=== PATIENT | female | born 1980 | race Caucasian/White ===

== ENCOUNTER → 2018-09-05 14:53 | Outpatient (CLI) | payer OTHER, SELFPAY ==
[2016-07-07 14:08] VITALS: BMI 32.7
[2018-09-05 17:56] LABS: Anion Gap 5 (5-15); BUN 13 mg/dL (7-18); BUN/Creat Ratio 20.4 RATIO (10-20); Chloride 107 mmol/L (98-107); Creatinine, Serum 0.64 mg/dL (0.55-1.02); EST Glomerular Filtration Rate 111 mL/min (>60); Est Glom Filt Rate - Afr Amer 135 mL/min (>60); Ferritin 19 ng/mL (8-252); Glucose 85 mg/dL (74-106); Sodium Level 140 mmol/L (136-145); Thyroid Stim Hormone (TSH) 0.82 uIU/mL (0.358-3.74)
== END ==
PROVIDERS: Family Provider Family Medicine; PCP Family Medicine; Referring Provider Family Medicine; Visit Provider Family Medicine
DX: R07.89 Other chest pain (principal); N92.6 Irregular menstruation, unspecified
CPT/HCPCS: 36415; 80048; 82728; 84443

== ENCOUNTER → 2020-01-22 14:01 | Outpatient (CLI) | payer OTHER, SELFPAY ==
[2016-07-07 14:08] VITALS: BMI 32.7
[2020-01-22 16:02] LABS: Absolute Lymphocyte Count 1.59 X10^3/uL (0.83-4.51); Absolute Neutrophil Count 3.3 X10^3/uL (2.0-7.7); Basophil# 0.03 X10^3/uL; Basophil% 0.5 % (0-1); Eosinophil# 0.09 X10^3/uL; Eosinophils% 1.6 % (0-5); Hematocrit 42.9 % (37-47); Hemoglobin 14.1 g/dL (12.0-15.0); Lymphocyte # 1.59 X10^3/ul (4.0); Lymphocyte % 28.9 % (19-41); Mean Corp Hgb Conc 32.9 g/dL (32-36); Mean Corpuscular Hgb 30.5 pg (27.0-32.0); Mean Corpuscular Volume 92.9 fL (81-99); Mean Platelet Vol. 9.6 fl (6.2-12.0); Monocyte# 0.52 X10^3/uL; Monocyte% 9.4 % (0-10); NRBC Flagged by Analyzer 0 % (0-5); Neutrophil # 3.27 X10^3/uL (2.7-7.7); Neutrophil % 59.4 % (47-70); Platelet Count 314 K/mm3 (150-450); RBC Distribution Width CV 12.6 % (11.6-14.6); RBC Distribution Width SD 43.3 fl (35.1-43.9); Red Blood Count 4.62 M/mm3 (4.2-5.4); White Blood Count 5.5 K/mm3 (4.4-11.0)
[2020-01-22 16:33] LABS: ALB/GLOB Ratio 0.8 RATIO (0.9-2.4); AST(SGOT) 12 U/L (15-37); Alanine Aminotransfer ALT/SGPT 24 U/L (13-56); Albumin, Serum 3.5 g/dL (3.2-5.0); Alkaline Phosphatase 75 U/L (45-117); Anion Gap 3 (5-15); BUN 10 mg/dL (7-18); BUN/Creat Ratio 12.8 RATIO (10-20); Calcium,Total 8.9 mg/dL (8.5-10.1); Chloride 104 mmol/L (98-107); Creatinine, Serum 0.78 mg/dL (0.55-1.02); EST Glomerular Filtration Rate 87 mL/min (>60); Est Glom Filt Rate - Afr Amer 106 mL/min (>60); Globulin 4.2 g/dL (2.2-4.2); Glucose 90 mg/dL (74-106); Potassium 3.7 mmol/L (3.5-5.1); Protein, Total 7.7 g/dL (6.4-8.2); Sodium Level 138 mmol/L (136-145); Thyroid Stim Hormone (TSH) 0.77 uIU/mL (0.358-3.74)
== END ==
PROVIDERS: PCP Family Medicine; Referring Provider Family Medicine; Visit Provider Family Medicine
DX: N92.6 Irregular menstruation, unspecified (principal)
CPT/HCPCS: 36415; 80053; 84443; 85025

== ENCOUNTER → 2020-02-05 17:31 | Outpatient (CLI) | payer OTHER, SELFPAY | PROVIDERS: PCP Family Medicine; Referring Provider Family Medicine; Visit Provider Family Medicine | DX: Z20.828 Contact with and (suspected) exposure to other viral communicable diseases (principal) | CPT/HCPCS: 87635; U0003 ==

== ENCOUNTER → 2020-04-09 10:20 | Outpatient (CLI) | payer OTHER, SELFPAY ==
[2016-07-07 14:08] VITALS: BMI 32.7
[2020-04-09 12:24] LABS: Absolute Lymphocyte Count 1.33 X10^3/uL (0.83-4.51); Absolute Neutrophil Count 2.2 X10^3/uL (2.0-7.7); Basophil# 0.05 X10^3/uL; Basophil% 1.2 % (0-1); Eosinophil# 0.18 X10^3/uL; Eosinophils% 4.2 % (0-5); Hematocrit 44.1 % (37-47); Hemoglobin 14.4 g/dL (12.0-15.0); Lymphocyte # 1.33 X10^3/ul (4.0); Lymphocyte % 31.1 % (19-41); Mean Corp Hgb Conc 32.7 g/dL (32-36); Mean Corpuscular Hgb 29.8 pg (27.0-32.0); Mean Corpuscular Volume 91.1 fL (81-99); Mean Platelet Vol. 9.9 fl (6.2-12.0); Monocyte# 0.47 X10^3/uL; NRBC Flagged by Analyzer 0 % (0-5); Neutrophil # 2.24 X10^3/uL (2.7-7.7); Neutrophil % 52.5 % (47-70); Platelet Count 274 K/mm3 (150-450); RBC Distribution Width CV 11.7 % (11.6-14.6); RBC Distribution Width SD 39.2 fl (35.1-43.9); Red Blood Count 4.84 M/mm3 (4.2-5.4); White Blood Count 4.3 K/mm3 (4.4-11.0)
[2020-04-09 13:19] LABS: AST(SGOT) 13 U/L (15-37); Alanine Aminotransfer ALT/SGPT 22 U/L (13-56); Albumin, Serum 3.8 g/dL (3.2-5.0); Alkaline Phosphatase 88 U/L (45-117); Anion Gap 7 (5-15); BUN 15 mg/dL (7-18); BUN/Creat Ratio 18.2 RATIO (10-20); Calcium,Total 9.4 mg/dL (8.5-10.1); Chloride 104 mmol/L (98-107); Creatinine, Serum 0.83 mg/dL (0.55-1.02); EST Glomerular Filtration Rate 82 mL/min (>60); Est Glom Filt Rate - Afr Amer 99 mL/min (>60); Globulin 3.9 g/dL (2.2-4.2); Glucose 93 mg/dL (74-106); Lipase 61 U/L (73-393); Potassium 3.9 mmol/L (3.5-5.1); Protein, Total 7.7 g/dL (6.4-8.2); Sodium Level 138 mmol/L (136-145)
== END ==
PROVIDERS: PCP Family Medicine; Referring Provider Family Medicine; Visit Provider Family Medicine
DX: K29.90 Gastroduodenitis, unspecified, without bleeding (principal)
CPT/HCPCS: 36415; 80053; 83690; 85025

== ENCOUNTER → 2020-04-10 | Outpatient (CLI) | payer OTHER, SELFPAY ==
[2016-07-07 14:08] VITALS: BMI 32.7
[2020-04-15 08:14] LABS: H. PYLORI STOOL AG Negative (Negative)
== END | disposition home or self-care (01) ==
LOC: MFPLAB 14:50 → LABSPEC 14:52
PROVIDERS: PCP Family Medicine; Referring Provider Family Medicine; Visit Provider Family Medicine
DX: K29.90 Gastroduodenitis, unspecified, without bleeding (principal)

== ENCOUNTER → 2020-07-20 12:10 | Outpatient (CLI) | payer OTHER, SELFPAY ==
[2016-07-07 14:08] VITALS: BMI 32.7
== END ==
PROVIDERS: PCP Family Medicine; Visit Provider Family Medicine
DX: Z20.822 Contact with and (suspected) exposure to COVID-19 (principal)
CPT/HCPCS: 87635; U0005; U0003

== ENCOUNTER → 2021-04-08 | Outpatient (CLI) | payer OTHER, SELFPAY | END | disposition home or self-care (01) | PROVIDERS: PCP Family Medicine; Visit Provider Family Medicine | DX: U07.1 COVID-19 (principal) | CPT/HCPCS: 87635; U0005; U0003 ==

== ENCOUNTER 2021-07-02 08:12 | Outpatient (CLI) | payer OTHER, SELFPAY ==
--- NOTE | 2021-07-02 08:15 | BI_ITS ---
MAMMOGRAPHY - BILATERAL DIAGNOSTIC REASON FOR EXAM: Female, 41 years old. Right breast pain for 3 weeks at the 10 to 11 o''clock position. PERTINENT HISTORY: Mother with breast cancer. Grandmother with breast cancer. TECHNIQUE: Digital bilateral breast edgar (3D mammographic acquisition) in the CC and MLO projections. 2-D mediolateral oblique (MLO) and craniocaudad (CC) views of both breasts were obtained. CAD: Full Field Digital Mammography with Computer Added Detection was performed. COMPARISON: None. Baseline examination. FINDINGS: Breast Composition: The breasts are heterogeneously dense, which may obscure small masses. There are no dominant masses or suspicious calcifications. There is a 4 mm x 4 mm well-defined nodule in the anterior upper lateral aspect of the right breast suggestive of a small lymph node. No other significant abnormalities are identified. BI/DIAG MAMM W/CAD, BILAT IMPRESSION: 4 mm x 4 mm well-defined nodule in the anterior upper lateral aspect of the right breast. With the patient''s history of pain at the 10 to 11 o''clock position of the right breast, correlation with ultrasound is recommended. ASSESSMENT CATEGORY: BIRADS Category 0: Incomplete. Need additional imaging evaluation. A letter regarding these results will be sent to the patient by the facility within 30 days. Approximately 10% of breast cancers are not detected by mammography. A normal mammogram should not delay biopsy of a clinically suspicious abnormality. Electronically Signed: Johnathon Cr MD at 12:16 EST ,
--- NOTE | 2021-07-02 09:03 | US_ITS ---
STUDY: ULTRASOUND BREAST - RIGHT REASON FOR EXAM: Female, 41 years old. Right breast pain at the 10 to 11 o''clock position of the breasts. TECHNIQUE: Axial and longitudinal images of the RIGHT breast were performed with a high resolution ultrasound transducer. # OF IMAGES: 31 COMPARISON: Comparison is made with prior mammogram done earlier today. FINDINGS: RIGHT Breast: There is a 4 mm x 4 mm x 2 mm benign-appearing lymph node at the 11 o''clock position of the breast at 2 cm from the nipple. US/Breast Limited Unilateral IMPRESSION: There is a 4 mm x 4 mm x 2 mm benign-appearing lymph node at the 11 o''clock position of the breast at 2 cm from nipple. ASSESSMENT CATEGORY: BIRADS Category 2: Benign. A letter regarding these results will be sent to the patient by the facility within 30 days. Electronically Signed: Johnathon Cr MD at 11:19 EST ,
== END 2021-07-02 23:59 | disposition short-term general hospital (02) ==
LOC: OPUS 08:13
PROVIDERS: PCP Family Medicine; Referring Provider Nurse Practitioner Family; Visit Provider Nurse Practitioner Family
DX: N64.4 Mastodynia (principal)
CPT/HCPCS: 76642; 77062; 77066; G0279

== ENCOUNTER → 2023-06-26 | Outpatient (CLI) | payer OTHER, SELFPAY ==
--- OUTSIDE RECORDS SUMMARY | 2023-06-26 19:06 | XMS RPT_ITS | CCD ---
Author Name Unknown Address [address] [place] [address] Organization [facility] Care Team Providers Care Real Estate Officer Name Role Phone VÍCTOR LANGE Unavailable Unavailable SETHIMARIA R SOL Unavailable Unavailable JOSSIE MARIA R SOL Unavailable Unavailable VÍCTOR LANGE Unavailable Unavailable VÍCTOR LANGE Unavailable Unavailable SETHI, MARIA R SOL Unavailable Unavailable VÍCTOR LANGE Unavailable Unavailable SETHI, MARIA R SOL Unavailable Unavailable SETHI, MARIA R SOL Unavailable Unavailable Unavailable Primary Care Provider Unavailabl e Medications Completed/Discontinued Medications Medication Drug Class(es) Dates Sig (Normalized) Sig (Original) benzonatate 100 mg oral capsule (2 sources) Non-narcotic Antitussive Start: 09-22-2021 take 1 capsule by mouth every eight hours as needed benzonatate (TESSALON PERLES) 100 mg capsule Take 1 capsule by mouth three times daily as needed for cough. 21 capsule 0 09/22/2021 Active Problems Problem Classification Problem Date Documented Da te Episodic/Chronic Other lower respiratory disease (1 source) Cough; Translations: [Cough] Episodic Viral infection (1 source) Viral disease; Translations: [Viral infection, unspecified] Episodic Results Test Name Value Interpretation Reference Range Facil ity Vital Signs Date Time Vital Sign Value Performing Clinician Faci lity 09-22-2021 17:41-0400 Body temperature 99.1 [degF] Jordan Chun DIE TRIMMER.PROBATION AGENT Work Phone: [facility] 09-22-2021 17:41-0400 Body weight 70.58 kg Jordan Chun DIE TRIMMER.PROBATION AGENT Work Phone: [facility] 09-22-2021 17:41-0400 Diastolic blood pressure 78 mm[Hg] Jordan Chun DIE TRIMMER.PROBATION AGENT Work Phone: [facility] 09-22-2021 17:41-0400 Heart rate 95 /min Jordan Chun DIE TRIMMER.PROBATION AGENT Work Phone: [facility] 09-22-2021 17:41-0400 Respiratory rate 18 /min Jordan Chun DIE TRIMMER.PROBATION AGENT Work Phone: [facility] 09-22-2021 17:41-0400 SaO2% (BldA) [Mass fraction] 97 % Jordna Chun DIE TRIMMER.PROBATION AGENT Work Phone: [facility] 09-22-2021 17:41-0400 Systolic blood pressure 122 mm[Hg] Jordan Chun DIE TRIMMER.PROBATION AGENT Work Phone: [facility] Encounters Encounter Date Encounter Type Care Provider Facility Start: 09-23-2021 Telephone encounter Mare hightower PA-C Work Phone: [facility] Plan of Treatment Date Care Activity Detail Author Start: 02-03-2022 Influenza vaccination INFLUENZA (Season Ended) [facility] stephania Start: 09-22-2021 End: 10-06-2021 Influenza virus A and B RNA and SARS-CoV-2 (COVID-19) N gene panel - Respiratory specimen by CARLOS with probe detection COVID WITH FLUA+B, ROUTINE Microbiology Routine Viral illness Cough Expected: 09/22/2021, Expires: 10/06/2021 [facility] Work Phone: Payers Date Payer Category Payer Unknown MMO MMO [employer] [id number] 2019-Present [phone] [address] [place] [address] PPO [id number] Unknown [id number] Social History Date Type Detail Facility Start: 09-22-2021 Tobacco smoking stat us UTIS Never smoked tobacco [facility] Start: 09-22-2021 Tobacco use and exposure Smoke less tobacco non-user [facility] Start: 1980 Sex Assigned At Not on file [facility] Progress note 09-28-2021 Note Date & Type Note Facility 09-28-2021 Note HNO ID: [id number] Author: RT Mara(Basim) Service: ? Author Type: Software Security Consultant Type: Progress Notes Filed: 09/28/2021 5:35 PM Note Text: Radiology Service Progress Note PATIENT NAME: Naresh Mccray DATE OF SERVICE: September 28, 2021 TIME: 5:27 PM PATIENT IDENTITY VERIFICATION COMPLETED USING TWO (2) IDENTIFIERS: Name and Date of confirmed by patient verbally. FALL SCREENING: Has the patient had 2 falls in the last year or 1 fall with injury or currently using an Ambulatory Assistive Device (Walker, Cane, Wheelchair, Crutches, etc.)? No PATIENT GENDER DATA: Female. status: : No status: NO. PATIENT RELEVANT IMPLANT DATA REVIEWED: Yes RADIOLOGY DEPARTMENT: General X-ray: Exam(s) Completed: Chest X-Ray PERIPHERAL IV DATA: Not applicable SIGNED BY: RT Mara(R) September 28, 2021 5:27 PM [facility] Progress note 09-28-2021 Note Date & Type Note Facility 09-28-2021 Note HNO ID: [id number] Author: Nicola Reid APRN.PROBATION AGENT Service: ? Author Type: Nurse Practitioner Type: Progress Notes Filed: 09/28/2021 6:15 PM Note Text: Subjective HPI Nontoxic female presents urgent care chief complaint cough shortness of breath. Duration of cough 10 days. Shortness of breath 1 day. Was diagnosed with influenza a 6 days ago. Presents today due to new onset of shortness of breath. Patient states cough is nonproductive. States cough is dry. Has been afebrile for 72 hours. No antipyretic use or OTC medication use today. States feeling better currently. Denies any known sick contacts. Denies any fever body aches chills productive cough chest pain hemoptysis nausea vomiting abdominal pain or change in bowel or bladder habits. Denies history of PE DVT. Denies any leg pain calf swelling. Denies any recent long travel. Denies history of recent cancer or surgeries. Denies chance of . Does not take coparent. Is not a smoker. Denies history of asthma or COPD. Past medical history prescription medication use allergies reviewed. .Patient presents with: Cough: x 4/20 + influenza A, shortness of breath x 1 day History reviewed. No pertinent past medical history. History reviewed. No pertinent surgical history. ALLERGIES Patient has no known allergies. MEDICATIONS buPROPion XL (WELLBUTRIN XL) 300 mg 24 hr tablet TAKE 1 TABLET BY MOUTH ONCE DAILY IN THE MORNING Cimetidine 800 mg tablet TAKE 1 TABLET BY MOUTH TWICE DAILY NEEDED TO PREVENT ACID RELEASE pantoprazole DR (PROTONIX) 40 mg tablet TAKE 1 TABLET BY MOUTH ONCE DAILY, 30 MINUTES BEFORE LARGEST MEAL TO STOP ACID PRODUCTION. MULTI-VITAMIN ORAL Take by mouth. benzonatate (TESSALON PERLES) 100 mg capsule Take 1 capsule by mouth three times daily as needed for cough. History reviewed. No pertinent family history. Social History Tobacco Use - Smoking status: Never Smoker - Smokeless tobacco: Never Used Substance Use Topics - Alcohol use: Not on file - Drug use: Not on file BP 124/82 Pulse 88 Temp 36.3 ?C (97.3 ?F) Resp 16 Wt 69.4 kg (153 lb) SpO2 99% ' Review of Systems Constitutional: Negative for chills, fever and malaise/fatigue. HENT: Positive for congestion. Negative for ear discharge, ear pain, sinus pain and sore throat. Eyes: Negative for blurred vision, pain, discharge and redness. Respiratory: Positive for cough and shortness of breath. Negative for hemoptysis, sputum production, wheezing and stridor. Cardiovascular: Negative for chest pain. Gastrointestinal: Negative for abdominal pain, diarrhea, nausea and vomiting. Musculoskeletal: Negative for myalgias. Skin: Negative for itching and rash. Neurological: Negative for dizziness and headaches. Objective Physical Exam Constitutional: General: She is not in acute distress. Appearance: She is not diaphoretic. HENT: Head: Normocephalic. Mouth/Throat: Mouth: Mucous membranes are moist. Pharynx: Oropharynx is clear. No oropharyngeal exudate or posterior oropharyngeal erythema. Eyes: Conjunctiva/sclera: Conjunctivae normal. Pupils: Pupils are equal, round, and reactive to light. Cardiovascular: Rate and Rhythm: Normal rate and regular rhythm. Heart sounds: Normal heart sounds. Pulmonary: Effort: Pulmonary effort is normal. No tachypnea, accessory muscle usage or respiratory distress. Breath sounds: Normal breath sounds. No stridor. No wheezing, rhonchi or rales. Chest: Chest wall: No tenderness. Abdominal: Palpations: Abdomen is soft. Tenderness: There is no abdominal tenderness. Musculoskeletal: Cervical back: Normal range of motion and neck supple. No rigidity or tenderness. Lymphadenopathy: Cervical: No cervical adenopathy. Skin: General: Skin is warm and dry. Neurological: Mental Status: She is alert and oriented to person, place, and time. ASSESSMENT/PLAN: 1. Cough - ICD9: 786.2, ICD10: R05.9 - XR CHEST 2V FRONTAL/LAT IMPRESSION: ? No acute cardiopulmonary process. Chest x-ray negative. No evidence of bacterial infection. Wells /PERC score 0. Albuterol inhaler will be prescribed. Patient was educated on supportive therapies. Patient will follow up with primary care provider as needed. Patient was instructed to immediately proceed to emergency room for any new, worsening, or symptoms lasting longer than anticipated. The patient's clinical presentation is otherwise unremarkable at this time. Based on exam and clinical finding, the patient is stable for discharge. Plan of care was discussed with patient. Patient verbalizes understanding and agrees to plan of care. This note was generated using [employer] software. It may contain errors in wording, punctuation, or spelling. Nicola Reid APRN.[facility] Note 09-23-2021 Telephone Encounter - Kenia Mora - 09/23/2021 1:07 PM EDTTelephone Encounter - Mare Iglesias PA-C - 09/23/2021 12:58 PM EDT Note Date & Type Note Facility 09-23-2021 Miscellaneous Notes Patient given results and verbalized understanding of instructions given. Kenia Mora Let patient know he was positive for influenza A. Continue supportive care, follow up if symptoms aren't better in 3-5 days. documented in this encounter [facility] Influenza virus A and B RNA and SARS-CoV-2 (COVID-19) N gene panel CARLOS+probe (Resp) 09-22-2021 Note Date & Type Note Facility 09-22-2021 Influenza virus A and B RNA and SARS-CoV-2 (COVID-19) N gene panel CARLOS+probe (Resp) COVID 19 RESULT: SARS-CoV-2 (Agent of COVID-19) Not Detected by RT-PCR or equivalent method. [place] [id number] (JENARO)_EUA This test was developed and its performance characteristics determined by [facility]'s [facility]. This test has been authorized by FDA under an Emergency Use Authorization (EUA). This test has been validated in accordance with the FDA's Guidance Document Policy for Diagnostics Testing in Laboratories Certified to Perform High Complexity Testing under CLIA prior to Emergency use Authorization for Coronavirus Disease 2019 during the Public Health Emergency issued on August 03, 2019. Test performed by [facility], [facility], [address] [place] [address]. INFLUENZA A PCR: Positive for Influenza A by RT-PCR INFLUENZA B PCR: Negative for Influenza B by RT-PCR [facility] Progress note 09-22-2021 Note Date & Type Note Facility 09-22-2021 Note HNO ID: [id number] Author: Jordan Chun APRN.PROBATION AGENT Service: ? Author Type: Nurse Practitioner Type: Progress Notes Filed: 09/22/2021 6:03 PM Note Text: This note was created using [employer]. Subjective Naresh Mccray is a 41 year old female. 41 year old female with GERD presents with complaints of possible Influenza A. Acute onset 2 days ago. + body aches + fatigue +fever +sore throat +cough +runny nose + congestion. States tested positive this past Monday. Endorses that she has missed work the past few days Fever today was 100. She did take Tylenol earlier today Received her flu shot. Denies SOB or dyspnea. Denies abdominal pain. Denies N/V/D Denies skin rash or lesions. Denies tobacco usage. The history is provided by the patient. No staff interpreter was used. Cough This is a new problem. The current episode started 2 days ago. The problem occurs constantly. The problem has not changed since onset.The cough is non-productive. The maximum temperature recorded prior to her arrival was 101 to 101.9 F. Associated symptoms include chills, ear congestion, headaches, rhinorrhea, sore throat and myalgias. Pertinent negatives include no chest pain, no sweats, no weight loss, no ear pain, no shortness of breath, no wheezing and no eye redness. Treatments tried: Tylenol. She is not a smoker. Her past medical history does not include bronchitis, pneumonia, bronchiectasis, COPD, emphysema or asthma. History reviewed. No pertinent past medical history. No past surgical history on file. ALLERGIES Patient has no known allergies. MEDICATIONS buPROPion XL (WELLBUTRIN XL) 300 mg 24 hr tablet TAKE 1 TABLET BY MOUTH ONCE DAILY IN THE MORNING Cimetidine 800 mg tablet TAKE 1 TABLET BY MOUTH TWICE DAILY NEEDED TO PREVENT ACID RELEASE pantoprazole DR (PROTONIX) 40 mg tablet TAKE 1 TABLET BY MOUTH ONCE DAILY, 30 MINUTES BEFORE LARGEST MEAL TO STOP ACID PRODUCTION. MULTI-VITAMIN ORAL Take by mouth. benzonatate (TESSALON PERLES) 100 mg capsule Take 1 capsule by mouth three times daily as needed for cough. No family history on file. Social History Tobacco Use - Smoking status: Never Smoker - Smokeless tobacco: Never Used Substance Use Topics - Alcohol use: Not on file - Drug use: Not on file Review of Systems Constitutional: Positive for chills, fatigue and fever. Negative for weight loss. HENT: Positive for congestion, rhinorrhea and sore throat. Negative for ear pain, sinus pressure and sinus pain. Eyes: Negative for pain, discharge, redness and itching. Respiratory: Positive for cough. Negative for apnea, choking, chest tightness, shortness of breath and wheezing. Cardiovascular: Negative for chest pain, palpitations and leg swelling. Gastrointestinal: Negative for abdominal pain, diarrhea, nausea and vomiting. Musculoskeletal: Positive for myalgias. Skin: Negative for color change, pallor and rash. Allergic/Immunologic: Negative for environmental allergies, food allergies and immunocompromised state. Neurological: Positive for headaches. Hematological: Negative for adenopathy. Does not bruise/bleed easily. Psychiatric/Behavioral: Negative for agitation and behavioral problems. Objective BP 122/78 Pulse 95 Temp 37.3 ?C (99.1 ?F) (Tympanic) Resp 18 Wt 70.6 kg (155 lb 9.6 oz) SpO2 97% Physical Exam Vitals and nursing note reviewed. Constitutional: General: She is not in acute distress. Appearance: Normal appearance. She is normal weight. She is not ill-appearing, toxic-appearing or diaphoretic. HENT: Head: Normocephalic and atraumatic. Right Ear: Ear canal and external ear normal. Left Ear: Ear canal and external ear normal. Nose: Nose normal. No congestion or rhinorrhea. Mouth/Throat: Mouth: Mucous membranes are moist. Pharynx: No oropharyngeal exudate or posterior oropharyngeal erythema. Eyes: General: Right eye: No discharge. Left eye: No discharge. Extraocular Movements: Extraocular movements intact. Conjunctiva/sclera: Conjunctivae normal. Pupils: Pupils are equal, round, and reactive to light. Cardiovascular: Rate and Rhythm: Normal rate and regular rhythm. Pulses: Normal pulses. Heart sounds: Normal heart sounds. No murmur heard. No friction rub. Pulmonary: Effort: Pulmonary effort is normal. No respiratory distress. Breath sounds: Normal breath sounds. No stridor. No wheezing, rhonchi or rales. Chest: Chest wall: No tenderness. Abdominal: General: Abdomen is flat. There is no distension. Palpations: Abdomen is soft. There is no mass. Tenderness: There is no abdominal tenderness. There is no right CVA tenderness, left CVA tenderness, guarding or rebound. Hernia: No hernia is present. Musculoskeletal: General: No swelling, tenderness, deformity or signs of injury. Normal range of motion. Cervical back: Normal range of motion and neck supple. No rigidity. Right lower leg: (more content not included)... [facility] Note 09-22-2021 Addendum Note - Jordan Chun APRN.PROBATION AGENT - 09/22/2021 6:09 PM EDT Note Date & Type Note Facility 09-22-2021 Miscellaneous Notes Addended by: JORDAN CHUN on: 09/22/2021 06:09 PM Modules accepted: Orders documented in this encounter [facility] Instructions 09-22-2021 Patient Instructions Note Date & Type Note Facility 04-20-2022 Instructions Jordan Chun APRN.CNP - 09/22/2021 5:55 PM EDT Viral illness (primary encounter diagnosis) Cough You have been diagnosed with an illness caused by a virus. Antibiotics do not cure viral infections. If given when not needed, antibiotics can be harmful. The treatments described below will help you feel better while your body's own defenses are fighting the virus. General Instructions: Drink extra water and juice. Use a cool mist vaporizer or saline nasal spray to relieve congestion. For Sore throats, use ice chips or sore throat spray; lozenges for older children and adults. Specific Medications: Fever, aches, ear pain: Use medicines according to the package instructions or as directed by your healthcare provider. Stop the medication when the symptoms get better. No follow-ups on file. documented in this encounter [facility] History of Present illness Narrative 09-22-2021 Jordan Chun APRN.CNP - 09/22/2021 5:51 PM EDT Note Date & Type Note Facility 09-22-2021 History of Presen t illness Narrative This note was created using [employer]. Subjective Naresh Mccray is a 41 year old female. 41 year old female with GERD presents with complaints of possible Influenza A. Acute onset 2 days ago. + body aches + fatigue +fever +sore throat +cough +runny nose + congestion. States tested positive this past Monday. Endorses that she has missed work the past few days Fever today was 100. She did take Tylenol earlier today Received her flu shot. Denies SOB or dyspnea. Denies abdominal pain. Denies N/V/D Denies skin rash or lesions. Denies tobacco usage. The history is provided by the patient. No staff interpreter was used. Cough This is a new problem. The current episode started 2 days ago. The problem occurs constantly. The problem has not changed since onset.The cough is non-productive. The maximum temperature recorded prior to her arrival was 101 to 101.9 F. Associated symptoms include chills, ear congestion, headaches, rhinorrhea, sore throat and myalgias. Pertinent negatives include no chest pain, no sweats, no weight loss, no ear pain, no shortness of breath, no wheezing and no eye redness. Treatments tried: Tylenol. She is not a smoker. Her past medical history does not include bronchitis, pneumonia, bronchiectasis, COPD, emphysema or asthma. History reviewed. No pertinent past medical history. No past surgical history on file. ALLERGIES Patient has no known allergies. MEDICATIONS buPROPion XL (WELLBUTRIN XL) 300 mg 24 hr tablet TAKE 1 TABLET BY MOUTH ONCE DAILY IN THE MORNING Cimetidine 800 mg tablet TAKE 1 TABLET BY MOUTH TWICE DAILY NEEDED TO PREVENT ACID RELEASE pantoprazole DR (PROTONIX) 40 mg tablet TAKE 1 TABLET BY MOUTH ONCE DAILY, 30 MINUTES BEFORE LARGEST MEAL TO STOP ACID PRODUCTION. MULTI-VITAMIN ORAL Take by mouth. benzonatate (TESSALON PERLES) 100 mg capsule Take 1 capsule by mouth three times daily as needed for cough. No family history on file. Social History Tobacco Use Smoking status: Never Smoker Smokeless tobacco: Never Used Substance Use Topics Alcohol use: Not on file Drug use: Not on file Review of Systems Constitutional: Positive for chills, fatigue and fever. Negative for weight loss. HENT: Positive for congestion, rhinorrhea and sore throat. Negative for ear pain, sinus pressure and sinus pain. Eyes: Negative for pain, discharge, redness and itching. Respiratory: Positive for cough. Negative for apnea, choking, chest tightness, shortness of breath and wheezing. Cardiovascular: Negative for chest pain, palpitations and leg swelling. Gastrointestinal: Negative for abdominal pain, diarrhea, nausea and vomiting. Musculoskeletal: Positive for myalgias. Skin: Negative for color change, pallor and rash. Allergic/Immunologic: Negative for environmental allergies, food allergies and immunocompromised state. Neurological: Positive for headaches. Hematological: Negative for adenopathy. Does not bruise/bleed easily. Psychiatric/Behavioral: Negative for agitation and behavioral problems. Objective BP 122/78 Pulse 95 Temp 37.3 C (99.1 F) (Tympanic) Resp 18 Wt 70.6 kg (155 lb 9.6 oz) SpO2 97% Physical Exam Vitals and nursing note reviewed. Constitutional: General: She is not in acute distress. Appearance: Normal appearance. She is normal weight. She is not ill-appearing, toxic-appearing or diaphoretic. HENT: Head: Normocephalic and atraumatic. Right Ear: Ear canal and external ear normal. Left Ear: Ear canal and external ear normal. Nose: Nose normal. No congestion or rhinorrhea. Mouth/Throat: Mouth: Mucous membranes are moist. Pharynx: No oropharyngeal exudate or posterior oropharyngeal erythema. Eyes: General: Right eye: No discharge. Left eye: No discharge. Extraocular Movements: Extraocular movements intact. Conjunctiva/sclera: Conjunctivae normal. Pupils: Pupils are equal, round, and reactive to light. Cardiovascular: Rate and Rhythm: Normal rate and regular rhythm. Pulses: Normal pulses. Heart sounds: Normal heart sounds. No murmur heard. No friction rub. Pulmonary: Effort: Pulmonary effort is normal. No respiratory distress. Breath sounds: Normal breath sounds. No stridor. No wheezing, rhonchi or rales. Chest: Chest wall: No tenderness. Abdominal: General: Abdomen is flat. There is no distension. Palpations: Abdomen is soft. There is no mass. Tenderness: There is no abdominal tenderness. There is no right CVA tenderness, left CVA tenderness, guarding or rebound. Hernia: No hernia is present. Musculoskeletal: General: No swelling, tenderness, deformity or signs of injury. Normal range of motion. Cervical back: Normal range of motion and neck supple. No rigidity. Right lower leg: No edema. Left lower leg: No edema. Lymphadenopathy: Cervical: No cervical adenopathy. Skin: General: Skin is warm and dry. Coloration: Skin is not jaundiced or pale. Findings: No bruising, erythema, lesion or rash. Neurological: General: No focal deficit present. Mental Status: She is alert and oriented to person, place, and time. Cranial Nerves: No cranial nerve deficit. Sensory: No sensory deficit. Motor: No weakness. Coordination: Coordination normal. Gait: Gait normal. Psychiatric: Mood and Affect: Mood normal. Behavior: Behavior normal. Thought Content: Thought content normal. Judgment: Judgment normal. Assessment and Plan ASSESSMENT/PLAN: 1. Viral illness - ICD9: 079.99, ICD10: B34.9 (primary diagnosis) - Discussed viral etiology and rationale for treatment. - Symptomatic treatment with prn analgesia - Supportive care with fluids and rest - The patient may also use OTC cough and cold meds as needed, warm salt water gargles, throat lozenges and/or OTC throat spray as needed and nasal saline gtts and suction prn. - Follow up in 3-5 days if symptoms persist or sooner if worsening of symptoms 2. Cough - ICD9: 786.2, ICD10: R05.9 Given context, related to viral illness With testing positive for flu RX Teseileen Oliver Work note Jordan Chun APRN.BRANNON documented in this encounter [facility] Evaluation note Note Date & Type Note Facility documented in this encounter [facility] Summary Purpose Family History No Family History Records FoundNo Family History Records Found Advance Directives No Advanced Directives Records FoundNo Advanced Directives Records Found Health Concerns Infection Onset Date Last Indicated Resolved Time COVID-19 Rule-Out 09/22/2021 09/22/2021 Infection Onset Date Last Indicated Resolved Time COVID-19 Rule-Out 09/22/2021 09/22/2021 09/23/2021 11:29 AM EDT Additional Source Comments INFORMATION SOURCE (unrecogn ized section and content) DATE CREATED AUTHOR AUTHOR'S ORGANIZ ATION 10/01/2021 [facility] Source Comments (unrecognize d section and content) In the event this informatio n is protected by the Federal Confidentiality of Alcohol and Drug Abuse Patient Records regulations: The Federal rules restrict any use of the information to criminally investigate or prosecute any alcohol or drug abuse patient.[facility] the event this information is protected by the Federal Confidentiality of Alcohol and Drug Abuse Patient Records regulations: The Federal rules restrict any use of the information to criminally investigate or prosecute any alcohol or drug abuse patient.[facility] Reason for Visit (unrecogniz ed section and content) Reason Comments Results FOR RECORDS PERTAINING TO PATIENTS WHO ARE OR HAVE BEEN ENROLLED IN A CHEMICAL DEPENDENCY/SUBSTANCEABUSE PROGRAM, SOME INFORMATION MAY BE OMITTED. This clinical summary was aggregated from multiple sources. Caution should be exercised in using it in the provision of clinical care. This summary normalizes information from multiple sources, and as a consequence, information in this document may materially change the coding, format and clinical context of patient data. In addition, data may be omitted in some cases. CLINICAL DECISIONS SHOULD BE BASED ON THE PRIMARY CLINICAL RECORDS. [employer] [facility]. provides no warranty or guarantee of the accuracy or completeness of information in this document.
[2023-06-29 14:09] LABS: HPV APTIMA, High Risk Negative (Negative)
[2023-06-29 20:43] LABS: HPV Reflexed? YES, CHARGE PATIENT
== END | disposition home or self-care (01) ==
PROVIDERS: PCP Family Medicine; Visit Provider Nurse Practitioner Family
DX: Z12.4 Encounter for screening for malignant neoplasm of cervix (principal)
CPT/HCPCS: 87624; 88175; G0145

== ENCOUNTER → 2023-07-05 | Outpatient (CLI) | payer OTHER, SELFPAY ==
--- NOTE | 2023-07-05 09:46 | BI_ITS ---
MAMMOGRAPHY - BILATERAL SCREENING REASON FOR EXAM: Female, 43 years old. Routine annual screening examination. PERTINENT HISTORY: Mother with breast cancer. Grandmother with breast cancer. TECHNIQUE: Digital bilateral breast jackson (3D mammographic acquisition) in the CC and MLO projections. 2-D mediolateral oblique (MLO) and craniocaudad (CC) views of both breasts were obtained. CAD: Full Field Digital Mammography with Computer Added Detection was performed. COMPARISON: Comparison is made with prior study dated July 02, 2021. FINDINGS: Breast Composition: The breasts are heterogeneously dense, which may obscure small masses. There are no dominant masses or suspicious calcifications. No other significant abnormalities are identified. There has been no significant change since the prior study. BI/SCRN MAMM (CAD)W/JACKSON BILAT IMPRESSION: Stable bilateral screening mammogram. Yearly follow-up mammogram recommended. (A) ASSESSMENT CATEGORY: BIRADS Category 1: Negative. A letter regarding these results will be sent to the patient by the facility within 30 days. Approximately 10% of breast cancers are not detected by mammography. A normal mammogram should not delay biopsy of a clinically suspicious abnormality. [id number] Electronically Signed: Johnathon Cr MD at 17:28 EST ,
== END | disposition home or self-care (01) ==
LOC: OPBI 09:45
PROVIDERS: PCP Family Medicine; Referring Provider Nurse Practitioner Family; Visit Provider Nurse Practitioner Family
DX: Z12.31 Encounter for screening mammogram for malignant neoplasm of breast (principal); Z80.3 Family history of malignant neoplasm of breast
CPT/HCPCS: 77063; 77067

== ENCOUNTER → 2023-07-10 | Outpatient (CLI) | payer OTHER, SELFPAY ==
--- OUTSIDE RECORDS SUMMARY | 2023-07-10 12:34 | XMS RPT_ITS | CCD ---
Author Name Unknown Address [address] [place] [address] Organization [facility] Care Team Providers Care Banquet Waiter/Waitress Name Role Phone VÍCTOR LANGE Unavailable Unavailable [...] 17:41-0400 Body temperature 99.1 [degF] Jordan Chun E MARKETING SPECIALIST.PARK WORKER SUPERVISOR Work Phone: [facility] 09-22-2021 17:41-0400 Body weight 70.58 kg Jordan Chun E MARKETING SPECIALIST.PARK WORKER SUPERVISOR Work Phone: [facility] 09-22-2021 17:41-0400 Diastolic blood pressure 78 mm[Hg] Jordan Chun E MARKETING SPECIALIST.PARK WORKER SUPERVISOR Work Phone: [facility] 09-22-2021 17:41-0400 Heart rate 95 /min Jordan Chun E MARKETING SPECIALIST.PARK WORKER SUPERVISOR Work Phone: [facility] 09-22-2021 17:41-0400 Respiratory rate 18 /min Jordan Chun E MARKETING SPECIALIST.PARK WORKER SUPERVISOR Work Phone: [facility] 09-22-2021 17:41-0400 SaO2% (BldA) [Mass fraction] 97 % Jordan Chun E MARKETING SPECIALIST.PARK WORKER SUPERVISOR Work Phone: [facility] 09-22-2021 17:41-0400 Systolic blood pressure 122 mm[Hg] Jordan Chun E MARKETING SPECIALIST.PARK WORKER SUPERVISOR Work Phone: [facility] Encounters Encounter Date Encounter Type Care Provider Facility Start: 09-23-2021 Telephone encounter Mare hightower PA-C Work Phone: [facility] Plan of Treatment Date Care Activity Detail Author Start: 02-03-2022 Influenza vaccination INFLUENZA (Season Ended) [facility] stephania Start: 09-22-2021 End: 10-06-2021 Influenza virus A and B RNA and SARS-CoV-2 (COVID-19) N gene panel - Respiratory specimen by CARLOS with probe detection COVID WITH FLUA+B, ROUTINE Microbiology Routine Viral illness Cough Expected: 09/22/2021, Expires: 10/06/2021 [facility] Work Phone: Payers Date Payer Category Payer Unknown MMO MMO [employer] [id number] 2019-Present [phone] [address] [place] [address] PPO [id number] Unknown [id number] Social History Date Type Detail Facility Start: 09-22-2021 Tobacco smoking stat us WAIS Never smoked tobacco [facility] Start: 09-22-2021 Tobacco use and exposure Smoke less tobacco non-user [facility] Start: 1980 Sex Assigned At Not on file [facility] Progress note 09-28-2021 Note Date & Type Note Facility 09-28-2021 Note HNO ID: [id number] Author: RT Mara(Basim) Service: ? Author Type: [facility] Type: Progress Notes Filed: 09/28/2021 5:35 PM [...] RT Mara(R) September 28, 2021 5:27 PM [facility] Progress note 09-28-2021 Note Date & Type Note Facility 09-28-2021 Note HNO ID: [id number] Author: Nicola Reid APRN.PARK WORKER SUPERVISOR Service: ? Author Type: Nurse Practitioner Type: [...] of care. This note was generated using [employer]ita software. It may contain errors in wording, punctuation, or spelling. Nicola Reid APRN.[facility] Note 09-23-2021 Telephone Encounter - Kenia Mora [...] in 3-5 days. documented in this encounter [facility] Influenza virus A and B RNA and SARS-CoV-2 (COVID-19) N gene panel CARLOS+probe (Resp) 09-22-2021 Note Date & Type Note Facility 09-22-2021 Influenza virus A and B RNA and SARS-CoV-2 (COVID-19) N gene panel CARLOS+probe (Resp) COVID 19 RESULT: SARS-CoV-2 (Agent of COVID-19) Not Detected by RT-PCR or equivalent method. [employer] [id number]_Dqvhh [employer] (JENARO)_EUA This test was developed and its performance characteristics determined by [facility]'s [facility] [place]. This test has been authorized by FDA under an Emergency Use Authorization (EUA). This test has been validated in accordance with the FDA's Guidance Document Policy for Diagnostics Testing in Laboratories Certified to Perform High Complexity Testing under CLIA prior to Emergency use Authorization for Coronavirus Disease 2019 during the Public Health Emergency issued on August 03, 2019. Test performed by [facility], [facility] [place], [address] [place] [address]. INFLUENZA A PCR: Positive for Influenza A by RT-PCR INFLUENZA B PCR: Negative for Influenza B by RT-PCR [facility] Progress note 09-22-2021 Note Date & Type Note Facility 09-22-2021 Note HNO ID: [id number] Author: Jordan Chun APRN.PARK WORKER SUPERVISOR Service: ? Author Type: Nurse Practitioner Type: [...] history is provided by the patient. No speech and language clinician was used. Cough This is a new [...] Note 09-22-2021 Addendum Note - Jordan Chun APRN.PARK WORKER SUPERVISOR - 09/22/2021 6:09 PM EDT Note Date & Type Note Facility 09-22-2021 Miscellaneous Notes Addended by: JORDAN CHUN on: 09/22/2021 06:09 PM Modules accepted: Orders documented in this encounter [facility] Instructions 09-22-2021 Patient Instructions Note Date & [...] follow-ups on file. documented in this encounter [facility] History of Present illness Narrative 09-22-2021 Jordan Chun APRN.CNP - 09/22/2021 5:51 PM EDT Note Date & Type Note Facility 09-22-2021 History of Presen t illness Narrative This note was created using [employer]. Subjective Naresh Mccray is a 41 year [...] history is provided by the patient. No speech and language clinician was used. Cough This is a new [...] Jordan Chun APRN.BRANNON documented in this encounter [facility] Evaluation note Note Date & Type Note Facility documented in this encounter [facility] Summary Purpose Family History No Family History [...] DATE CREATED AUTHOR AUTHOR'S ORGANIZ ATION 10/01/2021 [facility] Source Comments (unrecognize d section and content) In the event this informatio n is protected by the Federal Confidentiality of Alcohol and Drug Abuse Patient Records regulations: The Federal rules restrict any use of the information to criminally investigate or prosecute any alcohol or drug abuse patient.[facility] event this information is protected by the Federal Confidentiality of Alcohol and Drug Abuse Patient Records regulations: The Federal rules restrict any use of the information to criminally investigate or prosecute any alcohol or drug abuse patient.[facility] Reason for Visit (unrecogniz ed section and [...] BE BASED ON THE PRIMARY CLINICAL RECORDS. [facility] [facility]. provides no warranty or guarantee of the accuracy or completeness of information in this document.
[2023-07-10 15:42] LABS: Hemoglobin 13.1 g/dL (12.0-15.0); Mean Corp Hgb Conc 31.2 g/dL (32-36); Mean Corpuscular Volume 92.9 fL (81-99); Mean Platelet Vol. 9.6 fl (6.2-12.0); Platelet Count 323 K/mm3 (150-450); RBC Distribution Width CV 12.9 % (11.6-14.6); Red Blood Count 4.52 M/mm3 (4.2-5.4)
[2023-07-10 16:09] LABS: AST(SGOT) 29 U/L (15-37); Alanine Aminotransfer ALT/SGPT 38 U/L (13-56); Albumin, Serum 3.6 g/dL (3.2-5.0); Alkaline Phosphatase 68 U/L (45-117); Anion Gap 3 (5-15); BUN 8 mg/dL (7-18); Chloride 104 mmol/L (98-107); EST Glomerular Filtration Rate 83 mL/min (>60); Est Glom Filt Rate - Afr Amer 101 mL/min (>60); Globulin 3.6 g/dL (2.2-4.2); Glucose 88 mg/dL (74-106); Potassium 3.7 mmol/L (3.5-5.1); Protein, Total 7.2 g/dL (6.4-8.2); Sodium Level 136 mmol/L (136-145)
== END | disposition home or self-care (01) ==
LOC: MFPLAB 12:14
PROVIDERS: Nurse Practitioner Family; PCP Family Medicine; Visit Provider Family Medicine
DX: Z13.1 Encounter for screening for diabetes mellitus (principal)
CPT/HCPCS: 36415; 80053; 85027

== ENCOUNTER → 2024-08-02 | Outpatient (CLI) | payer OTHER, SELFPAY ==
--- NOTE | 2024-08-02 10:38 | BI_ITS ---
PROCEDURE: SCRN MAMM (CAD)W/JACKSON BILAT REASON FOR EXAM: F, Age 44 y/o, presents for annual screening mammogram. Family history of breast cancer in her mother at age 46 in her maternal grandmother in her late 60s. TECHNIQUE: Bilateral screening digital breast tomosynthesis with 2D and 3D images. Computer aided detection. COMPARISON: 07/05/2023 FINDINGS: The breasts are heterogeneously dense which may obscure small masses. The mammogram demonstrates that the patient has dense breasts. Supplemental screening with whole breast ultrasound or MRI may be considered for further evaluation. No suspicious masses, areas of developing architectural distortion, or suspicious calcifications. BI/SCRN MAMM (CAD)W/JACKSON BILAT IMPRESSION: There is no mammographic evidence of malignancy. BI-RADS 1: NEGATIVE. RECOMMEND ANNUAL MAMMOGRAPHIC SCREENING. Follow-up code: Routine Follow-up The patient will be notified of the results by letter. Reading Location: [id number]
== END | disposition home or self-care (01) ==
LOC: OPBI 10:37
PROVIDERS: PCP Family Medicine; Referring Provider Family Medicine; Visit Provider Family Medicine
DX: Z12.31 Encounter for screening mammogram for malignant neoplasm of breast (principal)
CPT/HCPCS: 77063; 77067

== ENCOUNTER → 2024-09-17 | Outpatient (CLI) | payer OTHER, SELFPAY ==
--- NOTE | 2024-09-17 14:48 | RAD_ITS ---
PROCEDURE: HIP, UNI W/ PELVIS 2-3 VIEWS 09/17/2024 REASON FOR EXAM: PAIN (WORSE WITH SITTING) TECHNIQUE: AP view of the pelvis and two views of the right hip, 3 total images COMPARISON: None available FINDINGS: No fracture or dislocation. The joint spaces appear within limits. Symmetric appearing SI joints and pubic symphysis appear within limits. No osseous lesion identified. RAD/HIP, UNI W/ Pelvis 2-3 Views IMPRESSION: Study appears within limits. Reading Location: [id number]
== END | disposition home or self-care (01) ==
LOC: MTRAD 14:48
PROVIDERS: PCP Family Medicine; Referring Provider Family Medicine; Visit Provider Family Medicine
DX: M25.551 Pain in right hip (principal)
CPT/HCPCS: 73502

== ENCOUNTER → 2025-04-08 | Outpatient (CLI) | payer OTHER, SELFPAY ==
[2025-04-08 17:50] LABS: Hematocrit 39.4 % (37-47); Hemoglobin 12.4 g/dL (12.0-15.0); Immature Granulocytes Count 0.010 X10^3/uL (0.0-0.0); Mean Corp Hgb Conc 31.5 g/dL (32-36); Mean Corpuscular Volume 85.3 fL (81-99); Mean Platelet Vol. 9.8 fl (6.2-12.0); NRBC Flagged by Analyzer 0 % (0-5); Platelet Count 362 K/mm3 (150-450); RBC Distribution Width CV 13.9 % (11.6-14.6); RBC Distribution Width SD 43.0 fl (35.1-43.9); Red Blood Count 4.62 M/mm3 (4.2-5.4); White Blood Count 5.0 K/mm3 (4.4-11.0)
[2025-04-08 18:16] LABS: AST(SGOT) 17 U/L (<=31); Alanine Aminotransfer ALT/SGPT 14 U/L (<=34); Albumin, Serum 4.0 g/dL (3.5-5.0); Alkaline Phosphatase 64 U/L (35-104); Anion Gap 9 (5-15); BUN 16 mg/dL (4-19); BUN/Creat Ratio 19.3 RATIO (10-20); Calcium,Total 9.2 mg/dL (7.6-11.0); Carbon Dioxide 26.5 mmol/L (21.0-32.0); Chloride 103 mmol/L (98-108); Globulin 2.9 g/dL (2.2-4.2); Glucose 106 mg/dL (70-99); Potassium 3.9 mmol/L (3.3-5.1)
== END | disposition home or self-care (01) ==
LOC: MTLAB 16:29
PROVIDERS: PCP Family Medicine; Referring Provider Family Medicine; Visit Provider Family Medicine
DX: N95.9 Unspecified menopausal and perimenopausal disorder (principal)
CPT/HCPCS: 36415; 80053; 83036; 84439; 84443; 85025